=== PATIENT | male | born 1955 | race Caucasian/White ===

== ENCOUNTER 2021-08-07 07:02 | Day surgery (SDC) | payer MEDICARE, BC ==
[~2021-08-07 07:02] MED LIST: Lactated Ringers 1,000 ML IV SCH; Sodium Chloride 0.9% 10 ML Syringe FLUSH PRN
[2021-08-07] MEDS ORDERED: Glycopyrrolate 0.2 MG/ML SDV IM ONE (07:03)
[2021-08-07] MEDS ORDERED: Midazolam 1 MG/ML 2 ML SDV ONE (08:05)
[2021-08-07] MEDS ORDERED: Propofol 200 MG/20 ML SDV ONE (08:06)
[2021-08-07] MEDS ORDERED: Lidocaine 2% 5 ML SDV ONE (08:06)
== END 2021-08-07 10:55 | disposition home or self-care (01) ==
LOC: KA.SDS 07:02
PROVIDERS: ATTEND Family Medicine
DX: K63.5 Polyp of colon (principal); I78.1 Nevus, non-neoplastic; K22.10 Ulcer of esophagus without bleeding; K57.30 Diverticulosis of large intestine without perforation or abscess without bleeding; K64.0 First degree hemorrhoids; K29.70 Gastritis, unspecified, without bleeding; K20.90 Esophagitis, unspecified without bleeding; K31.89 Other diseases of stomach and duodenum; N40.1 Benign prostatic hyperplasia with lower urinary tract symptoms; R35.0 Frequency of micturition; Z79.899 Other long term (current) drug therapy; Z90.49 Acquired absence of other specified parts of digestive tract; Z98.890 Other specified postprocedural states; Z87.891 Personal history of nicotine dependence; Z20.822 Contact with and (suspected) exposure to COVID-19
CPT/HCPCS: 00813; J2250; J2704; J3490; J7120